=== PATIENT | male | born 1985 | race American Indian/Alaskan Native ===

== ENCOUNTER 2017-10-18 18:02 | Emergency (ER) | payer OTHER ==
[2017-10-18] MEDS ORDERED: TORADOL IM ONE (20:40)
[2017-10-18] MEDS ORDERED: FLEXERIL PO ONE (20:40)
--- NOTE | 2017-10-18 20:46 | Emergency Department Report ---
ED General Adult HPI - General Chief complaint: Pain General Stated complaint: FLU LIKE SYMPTOMS Time Seen by Provider: 10/18/17 20:04 Source: patient Mode of arrival: Wheelchair Limitations: No Limitations - History of Present Illness Initial comments: 32 yo male who comes in today due to complaints of nausea, diarrhea, numbness/ tingling, and low back pain. He states that he was at work on today and started having the above complaints. He denies any pertinent past medical history. 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 The numbness/tingling was in his lips, hands, and bilateral lower extremities from his hips to his knees bilaterally. The low back pain is described as aching, crampy, continous and bilateral. -: This afternoon Location: face (lips ), back, lower extremity (duke) Radiation: non-radiation Severity scale (0 -10): 8 Quality: aching, other (cramping ) Consistency: constant Improves with: rest Worsens with: movement Associated Symptoms: malaise, weakness Treatments Prior to Arrival: none - Related Data Previous Rx's Medication Instructions Recorded Last Taken Type Cyclobenzaprine HCl [Flexeril 5 MG 5 mg PO QHS PRN #10 tablet 10/18/17 Unknown Rx TAB] Ibuprofen 800 mg PO Q8HR PRN #30 tablet 10/18/17 Unknown Rx Ondansetron [Zofran Odt] 4 mg PO Q6HR PRN #20 tab.rapdis 10/18/17 Unknown Rx Allergies Allergy/AdvReac Type Severity Reaction Status Date / Time No Known Allergies Allergy Unverified 10/18/17 18:19 ED Review of Systems ROS: Stated complaint: FLU LIKE SYMPTOMS Other details as noted in HPI Constitutional: malaise, weakness Eyes: denies: eye pain, eye discharge, vision change ENT: denies: ear pain, throat pain Respiratory: denies: cough, shortness of breath, wheezing Cardiovascular: denies: chest pain, palpitations Endocrine: no symptoms reported Gastrointestinal: denies: abdominal pain, nausea, diarrhea Genitourinary: denies: urgency, dysuria Musculoskeletal: as per HPI, back pain Skin: denies: rash, lesions Neurological: as per HPI Psychiatric: denies: anxiety, depression Hematological/Lymphatic: denies: easy bleeding, easy bruising ED Past Medical Hx - Past Medical History Previous Medical History?: No - Surgical History Additional Surgical History: nasal surgery - Social History Smoking Status: Current Some Day Smoker Substance Use Type: Alcohol, Marijuana - Medications Home Medications: Home Medications Medication Instructions Recorded Confirmed Last Taken Type Cyclobenzaprine HCl [Flexeril 5 MG 5 mg PO QHS PRN #10 tablet 10/18/17 Unknown Rx TAB] Ibuprofen 800 mg PO Q8HR PRN #30 tablet 10/18/17 Unknown Rx Ondansetron [Zofran Odt] 4 mg PO Q6HR PRN #20 tab.rapdis 10/18/17 Unknown Rx ED Physical Exam - General Limitations: No Limitations General appearance: alert, in no apparent distress - Head Head exam: Present: atraumatic, normocephalic - Eye Eye exam: Present: normal appearance - ENT ENT exam: Present: mucous membranes moist - Neck Neck exam: Present: normal inspection - Respiratory Respiratory exam: Present: normal lung sounds bilaterally. Absent: respiratory distress - Cardiovascular Cardiovascular Exam: Present: regular rate, normal rhythm. Absent: systolic murmur, diastolic murmur, rubs, gallop - GI/Abdominal GI/Abdominal exam: Present: soft, normal bowel sounds - Extremities Exam Extremities exam: Present: normal inspection - Back Exam Back exam: Present: normal inspection - Neurological Exam Neurological exam: Present: alert, oriented X3 - Psychiatric Psychiatric exam: Present: normal affect, normal mood - Skin Skin exam: Present: warm, dry, intact, normal color. Absent: rash ED Course Vital Signs 10/18/17 10/18/17 10/18/17 18:11 20:02 20:03 Temperature 98.2 F 98.4 F Pulse Rate 89 74 Respiratory 18 18 18 Rate Blood Pressure 126/105 Blood Pressure 117/70 [Left] O2 Sat by Pulse 100 100 100 Oximetry - Reevaluation(s) Reevaluation #1: 10/18/17 22:45 Patient feels much better after treatment. Home today. ED Medical Decision Making - Lab Data Result diagrams: 10/18/17 20:48 10/18/17 20:48 - Medical Decision Making Rhabdomyolysis Dehydration THC use Lumbosacral strain - Differential Diagnosis Rhabdomyolysis, dehydration, uti, THC use Critical care attestation.: If time is entered above; I have spent that time in minutes in the direct care of this critically ill patient, excluding procedure time. ED Disposition Clinical Impression: Rhabdomyolysis, Dehydration, Lumbosacral strain, Marijuana use Clinical Impression: (Ruled Out): UTI (urinary tract infection) Disposition: - TO HOME OR SELFCARE Is pt being admited?: No Does the pt Need Aspirin: No Condition: Stable Instructions: Dehydration (ED), Rhabdomyolysis (ED), Low Back Strain (ED), Medicinal Use of Cannabis (ED) Additional Instructions: Take medicines as prescribed. Remember to hydrate with plenty of fluids until better (water). Prescriptions: Cyclobenzaprine HCl [Flexeril 5 MG TAB] 5 mg PO QHS PRN #10 tablet PRN Reason: Muscle Spasm Ibuprofen 800 mg PO Q8HR PRN #30 tablet PRN Reason: Pain Ondansetron [Zofran Odt] 4 mg PO Q6HR PRN #20 tab.rapdis PRN Reason: Nausea And Vomiting Referrals: MONIKA HSU MD [Primary Care Provider] - 3-5 Days Time of Disposition: 22:59
[2017-10-18 20:59] LABS: Hematocrit 48.2 % (35.5-45.6); Hemoglobin 16.9 gm/dl (11.8-15.2); Mean Corpuscular HGB Conc 35 % (32-34); Mean Corpuscular Hemoglobin 31 pg (28-32); Mean Corpuscular Volume 89 fl (84-94); Red Blood Count 5.41 M/mm3 (3.65-5.03); Red Cell Distribution Width 12.8 % (13.2-15.2); White Blood Count 13.1 K/mm3 (4.5-11.0)
[2017-10-18 21:03] LABS: Platelet Count 97 K/mm3 (140-440)
[2017-10-18 21:13] LABS: Urine Drugs of Abuse Note Disclamer
[2017-10-18 21:22] LABS: Creatine Kinase MB 2.2 ng/mL (0.0-4.0)
[2017-10-18 21:24] LABS: Alanine Aminotransferase 38 units/L (7-56); Albumin 4.9 g/dL (3.9-5); Alkaline Phosphatase 48 units/L (35-129); Anion Gap 21 mmol/L; BUN/Creatinine Ratio 20; Blood Urea Nitrogen 18 mg/dL (9-20); Calcium 9.3 mg/dL (8.4-10.2); Carbon Dioxide 22 mmol/L (22-30); Creatine Kinase 524 units/L (55-170); Glucose 95 mg/dL (75-100); Potassium 3.9 mmol/L (3.6-5.0); Sodium 140 mmol/L (137-145); Total Protein 7.3 g/dL (6.3-8.2)
[2017-10-18 21:28] LABS: Bacteria,Urine 1+ /HPF (Negative); Bilirubin,Urine NEG (Negative); Blood,Urine NEG (Negative); Ketones,Urine 20 mg/dL (Negative); Leukocyte Esterase,Urine NEG (Negative); Mucus,Urine 2+ /HPF; Nitrite,Urine NEG (Negative); Urobilinogen,Urine < 2.0 mg/dL (<2.0)
[2017-10-18] MEDS ORDERED: NACL 0.9% 1000 ML 1,000 ML IV ONE (21:38)
[2017-10-18 23:09] VITALS: BP 107/62
== END 2017-10-18 23:09 | disposition home or self-care (01) ==
LOC: ED 18:02
DX: E86.0 Dehydration (principal); M62.82 Rhabdomyolysis; S39.012A Strain of muscle, fascia and tendon of lower back, initial encounter; R20.0 Anesthesia of skin; R19.7 Diarrhea, unspecified; R11.0 Nausea; F17.200 Nicotine dependence, unspecified, uncomplicated; F12.10 Cannabis abuse, uncomplicated; Z79.899 Other long term (current) drug therapy; X58.XXXA Exposure to other specified factors, initial encounter; Y93.89 Activity, other specified; Y99.8 Other external cause status; Y92.89 Other specified places as the place of occurrence of the external cause
CPT/HCPCS: 36415; 80053; 80307; 81001; 82550; 82553; 82962; 84484; 85027; 96360; 96372; 99284; J1885